=== PATIENT | male | born 1965 | race Caucasian/White ===

== ENCOUNTER 2016-08-10 18:00 | Emergency (ER) | payer BC ==
[~2016-08-10 18:00] MED LIST: CENTRUM PO; CYANO1000T PO; MILK THISTLE PO; ONE A DAY MENS PO
== END 2016-08-10 18:09 | disposition home or self-care (01) ==
LOC: ER 18:00
PROC: 0XQWXZZ Repair Left Little Finger, External Approach (ICD-10-PCS; principal; 2016-08-10)
DX: S61.217A Laceration without foreign body of left little finger without damage to nail, initial encounter (principal); Z88.0 Allergy status to penicillin; Z79.899 Other long term (current) drug therapy; W45.8XXA Other foreign body or object entering through skin, initial encounter
CPT/HCPCS: 90471; 90714; 99282; A9270-GY